=== PATIENT | female | born 1960 | race Caucasian/White ===

== ENCOUNTER 2021-01-14 12:04 | Outpatient (CLI) | payer MEDICARE, SELFPAY ==
--- NOTE | 2021-01-14 12:20 | MM_ITS ---
WS: [id number] SCREENING DIGITAL MAMMOGRAM WITH CAD HISTORY: SCREEN COMPARISON: 03/27/2012 Bilateral CC and MLO views submitted. Computer aided detection analyzed. Breast composition: The breasts are heterogeneously dense, which may obscure small masses. Developmen t of multiple partially obscured nodules within each breast. Largest in the RIGHT breast along the 6: 00 axis is 7 mm. There are several partially obscured nodules with the largest measuring 8 mm central to the nipple in the LEFT breast. There are additional small benign appearing calcifications within each breast. MM/[place] [id number] IMPRESSION: BI-RADS: 0-Incomplete: Need additional imaging evaluation FOLLOW UP: Need Additional Imaging Bilateral breasts: Spot compression views (CC and MLO). True ML. Ultrasound to follow if abnormality persists.
== END 2021-01-14 12:05 | disposition home or self-care (01) ==
LOC: RADSHAW 12:13
PROVIDERS: PCP Family Medicine; Visit Provider Family Medicine
DX: Z12.31 Encounter for screening mammogram for malignant neoplasm of breast (principal)
CPT/HCPCS: 77067

== ENCOUNTER 2022-02-19 | Outpatient (RCR) | payer MEDICARE, SELFPAY | END 2022-03-21 23:59 | disposition home or self-care (01) | LOC: SPT | PROVIDERS: PCP Family Medicine; Referring Provider Family Medicine; Visit Provider Family Medicine | DX: M54.50 Low back pain, unspecified (principal); M54.2 Cervicalgia; M25.551 Pain in right hip | CPT/HCPCS: 97110; 97161 ==

== ENCOUNTER 2022-02-26 10:36 | Outpatient (CLI) | payer MEDICARE, SELFPAY ==
--- NOTE | 2022-02-26 11:12 | XR_ITS ---
WS: [id number] 3 views of the left first finger, 02/26/2022 Clinical Data: L THUMB INJURY Comparison: None. Findings: No fractures or dislocations are seen. The soft tissues are normal. 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 XR/XR finger LT min 2V [id number] Impression: Negative for left thumb fracture.
== END 2022-02-26 10:37 | disposition home or self-care (01) ==
PROVIDERS: PCP Family Medicine; Visit Provider Family Medicine
DX: S69.92XA Unspecified injury of left wrist, hand and finger(s), initial encounter (principal); X58.XXXA Exposure to other specified factors, initial encounter
CPT/HCPCS: 73140

== ENCOUNTER 2022-11-11 11:32 | Outpatient (CLI) | payer MEDICARE, SELFPAY ==
--- NOTE | 2022-11-11 11:42 | MM_ITS ---
WS: [id number] SCREENING DIGITAL BREAST TOMOSYNTHESIS MAMMOGRAM WITH CAD HISTORY: SCREEN COMPARISON: 01/14/2021, 03/27/2012 Bilateral CC and MLO with tomosynthesis and synthetic mammography submitted. Computer aided detection analyzed. Breast composition: The breasts are heterogeneously dense, which may obscure small masses. Again note d are numerous bilateral partially obscured masses within each breast. These were also described on t he prior examination but the patient did not return for additional imaging as recommended. Numerous m asses are again identified ranging in size with some containing calcifications. MM/[place] [id number] IMPRESSION: BI-RADS: 0-Incomplete: Need additional imaging evaluation FOLLOW UP: Need Additional Imaging Bilateral breasts: Spot compression views (CC and MLO). True ML. Ultrasound to follow if abnormality persists.
== END 2022-11-11 11:33 | disposition home or self-care (01) ==
LOC: RAD 11:35
PROVIDERS: PCP Family Medicine; Visit Provider Family Medicine
DX: Z12.31 Encounter for screening mammogram for malignant neoplasm of breast (principal)
CPT/HCPCS: 77063; 77067

== ENCOUNTER 2024-06-25 08:21 | Outpatient (CLI) | payer OTHER, SELFPAY ==
--- NOTE | 2024-06-25 08:24 | FL_ITS ---
WS: [id number] FL barium swallow [id number] REASON FOR EXAM: [id number], rad requested, verbal order taken FLUOROSCOPY TIME: 2min [id number] # OF SPOT FILMS: 0 FINDINGS: Patient was examined in the standing upright AP and lateral projections of the prone LEON position. In the cervical esophagus there is a large posterior extrinsic narrowing at the C4-C5 level, reproduc ible. No aspiration was identified. In the prone LEON position the patient was unable to drink an adequate volume for optimal examination of the esophagus due to choking and coughing with each swallow. No aspiration was identified however the examination was terminated at that point. Limited evaluation of the thoracic esophagus demonstrates no extrinsic or intrinsic mass effect. Ther e is mild weakening of the primary peristaltic wave with no tertiary contractions identified. No sign ificant hiatal hernia or esophageal stricture is identified. 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 Presumably this is the region that did not per rach passage of the endoscope. Examination of the thoracic esophagus was limited as noted above. Minimal dysmo tility was identified. Despite the coughing and choking no actual aspiration was identified.
== END 2024-06-25 08:22 | disposition home or self-care (01) ==
LOC: RAD 08:23
PROVIDERS: PCP Family Medicine; Visit Provider Electrodiagnostic Medicine
DX: R13.19 Other dysphagia (principal); R93.3 Abnormal findings on diagnostic imaging of other parts of digestive tract
CPT/HCPCS: 74220

== ENCOUNTER 2025-01-28 08:27 | Outpatient (CLI) | payer MEDICARE, SELFPAY ==
--- NOTE | 2025-01-28 08:32 | CT_ITS ---
WS: [id number] CT NECK WITHOUT CONTRAST HISTORY: DYSPHAGIA TECHNIQUE: Contiguous 2 mm axial images are performed through the neck without intravenous contrast. Sagittal and coronal reformats are also submitted. All CT scans at [facility] use at least one of these dose optimization techniques: automated exposure control; mA and/or kV adjustment per patient size (includes targeted exams where dose is matched to clinical indication); or iterative reconstruction. CONTRAST: CONTRAST: None DLP: 190.63 mGy.cm COMPARISON: None available. No soft tissue mass is identified. Tongue base is normal. There is complete narrowing of the airway at the level of the larynx which is probably due to Valsalva maneuver during the examination. Torus tubarius and fossa of Rosenmuller and parapharyngeal fat are normal. No significant lymphadenopathy is identified. Mildly enlarged thyroid with no discrete nodule. Mild increase in cervical lordosis. Bilateral facet joint arthritis. Visualized portions of the skull base demonstrate no abnormalities. Orbits and globes are within normal limits. No soft tissue masses. Visualized paranasal sinuses and mastoid air cells are normal. Lung apices are clear. CT/CT neck wo con [id number] IMPRESSION: 1. Complete narrowing of the airway at the level of the larynx is probably due to Valsalva during imaging. Direct visualization may be of benefit to evaluate the larynx. 2. No cervical chain adenopathy.
== END 2025-01-28 08:28 | disposition home or self-care (01) ==
LOC: RAD 08:29
PROVIDERS: PCP Family Medicine; Visit Provider Nurse Practitioner Family
DX: R13.10 Dysphagia, unspecified (principal); R93.89 Abnormal findings on diagnostic imaging of other specified body structures
CPT/HCPCS: 70490

== ENCOUNTER 2025-03-26 09:09 | Outpatient (CLI) | payer MEDICARE, SELFPAY ==
--- NOTE | 2025-03-26 09:19 | CT_ITS ---
WS: [id number] CT NECK WITHOUT CONTRAST HISTORY: DYSPHAGIA TECHNIQUE: Contiguous 2 mm axial images are performed through the neck without intravenous contrast. Sagittal and coronal reformats are also submitted. All CT scans at [facility] use at least one of these dose optimization techniques: automated exposure control; mA and/or kV adjustment per patient size (includes targeted exams where dose is matched to clinical indication); or iterative reconstruction. CONTRAST: CONTRAST: None DLP: 162.50 mGy.cm COMPARISON: 01/28/2025 Reidentified is narrowing of the larynx at the level of the vocal cords. This may be due to to hypertrophic soft tissue or Valsalva maneuver. This would be readily visualized with laryngoscopy. Is very similar to the prior study with stenosis of the airway at the level of C3-4. No mass identified. Soft tissues of the tongue base and hypopharynx are otherwise negative. Subglottic airway is normal. RIGHT thyroid is slightly larger than the LEFT. Normal parotid glands. Small cervical chain lymph nodes. No osseous abnormalities. Visualized portions of the skull base demonstrate no abnormalities. Orbits and globes are within normal limits. No soft tissue masses. Mild mucoperiosteal thickening in the ethmoid air cells. No air-fluid levels. No bone destruction. Normal mastoid air cells. Lung apices are clear. CT/CT neck wo con [id number] IMPRESSION: 1. Continued soft tissue narrowing at the level of the vocal cords. This may b e due to Valsalva maneuver or hypertrophic soft tissue. This would be readily v isualized by laryngoscopy. 2. No adenopathy.
== END 2025-03-26 09:10 | disposition home or self-care (01) ==
PROVIDERS: PCP Family Medicine; Visit Provider Nurse Practitioner Family
DX: J38.6 Stenosis of larynx (principal)
CPT/HCPCS: 70490